=== PATIENT | female | born 1955 | race Caucasian/White ===

== ENCOUNTER 2018-07-31 16:44 | Emergency (ER) | payer MEDICARE, OTHER ==
[~2018-07-31] VITALS: Ht 165.1 cm; Wt 80.0 kg
[2018-07-31] MEDS ORDERED: HYDR12.517 PO (17:04)
[2018-07-31 17:11] LABS: BASOPHILS # (AUTO) 0.05 x10^3/uL (0-0.1); BASOPHILS % (AUTO) 1 % (0-1); EOSINOPHILS # (AUTO) 0.18 x10^3/uL (0-0.4); EOSINOPHILS % (AUTO) 2 % (1-7); LYMPHOCYTES # (AUTO) 3.08 x10^3/uL (1-3.4); LYMPHOCYTES % (AUTO) 30 % (22-44); MD NO; MEAN CORPUSCULAR HEMOGLOBIN 32.7 pg (27.0-34.8); MEAN CORPUSCULAR HGB CONC 34.1 g/dL (32.4-35.8); MEAN CORPUSCULAR VOLUME 96.1 fL (80-100); MEAN PLATELET VOLUME 8.8 fL (7.4-10.4); MONOCYTES # (AUTO) 1.04 x10^3/uL (0.2-0.8); MONOCYTES % (AUTO) 10 % (2-9); NEUTROPHILS % (AUTO) 58 % (42-75); PLATELET COUNT 258 x10^3/uL (130-400); RED BLOOD COUNT 3.69 x10^6/uL (3.82-5.3); RED CELL DISTRIBUTION WIDTH 13.5 % (9.6-15.2)
[2018-07-31 17:21] LABS: ALBUMIN 3.3 g/dL (3.4-5.0); ANION GAP 5 mmol/L (5-15); CALCIUM 7.9 mg/dL (8.5-10.1); CHLORIDE 110 mmol/L (98-107)
[2018-07-31 17:27] LABS: ALANINE AMINOTRANSFERASE 21 U/L (12-78); ALKALINE PHOSPHATASE 90 U/L (45-117); BILIRUBIN,TOTAL 0.2 mg/dL (0.2-1.0); TOTAL PROTEIN 7.1 g/dL (6.4-8.2); TROPONIN I < 0.015 ng/mL (0.000-0.045)
[2018-07-31 21:13] LABS: TROPONIN I < 0.015 ng/mL (0.000-0.045)
[2018-07-31 21:37] VITALS: BP 129/56
== END 2018-07-31 21:40 | disposition home or self-care (01) ==
LOC: ED 18:54
DX: R07.2 Precordial pain (principal); Z72.9 Problem related to lifestyle, unspecified; F17.200 Nicotine dependence, unspecified, uncomplicated
CPT/HCPCS: 36415; 71045; 80053; 83880; 84484; 85025; 93005; 99284; 99406

== ENCOUNTER 2018-08-12 15:35 | Emergency (ER) | payer MEDICARE ==
[~2018-08-12] VITALS: Ht 162.6 cm; Wt 77.9 kg
[~2018-08-12 15:35] MED LIST: HYDR12.517 PO
--- NOTE | 2018-08-12 16:12 | NUR ---
pt up to restroom upon recieving report from [facility]. pt has loose stool in restroom. upon returning pt expresses need to go again. beside commode provided. shortly after pt has third episode.
[2018-08-12] MEDS ORDERED: SODIUM CHLORIDE FLUSH 10ML SYR IVF ONE (16:30)
[2018-08-12] MEDS ORDERED: FAMOTIDINE 20 MG/2 ML IVP ONE (16:30)
[2018-08-12] MEDS ORDERED: SODIUM CHLORIDE 0.9% 1,000ML IVBOLUS ONE (16:30)
[2018-08-12] MEDS ORDERED: ONDANSETRON 2MG/ML, 2ML IVPush ONE (16:30)
[2018-08-12] MEDS ORDERED: ONDANSETRON 2MG/ML, 2ML ONE (16:41)
[2018-08-12] MEDS ORDERED: FAMOTIDINE 20 MG/2 ML ONE (16:41)
[2018-08-12 16:47] LABS: BASOPHILS # (AUTO) 0.03 x10^3/uL (0-0.1); BASOPHILS % (AUTO) 0 % (0-1); EOSINOPHILS # (AUTO) 0.05 x10^3/uL (0-0.4); EOSINOPHILS % (AUTO) 0 % (1-7); LYMPHOCYTES # (AUTO) 0.45 x10^3/uL (1-3.4); LYMPHOCYTES % (AUTO) 4 % (22-44); MD NO; MEAN CORPUSCULAR HEMOGLOBIN 32.3 pg (27.0-34.8); MEAN CORPUSCULAR HGB CONC 33.9 g/dL (32.4-35.8); MEAN CORPUSCULAR VOLUME 95.5 fL (80-100); MEAN PLATELET VOLUME 9.1 fL (7.4-10.4); MONOCYTES # (AUTO) 0.45 x10^3/uL (0.2-0.8); MONOCYTES % (AUTO) 4 % (2-9); NEUTROPHILS # (AUTO) 10.09 x10^3/uL (1.8-6.8); NEUTROPHILS % (AUTO) 91 % (42-75); PLATELET COUNT 321 x10^3/uL (130-400); RED BLOOD COUNT 4.35 x10^6/uL (3.82-5.3); RED CELL DISTRIBUTION WIDTH 13.5 % (9.6-15.2)
[2018-08-12 16:56] LABS: ALANINE AMINOTRANSFERASE 31 U/L (12-78); ALBUMIN 3.8 g/dL (3.4-5.0); ANION GAP 7 mmol/L (5-15); CHLORIDE 109 mmol/L (98-107); CREATININE 0.95 mg/dL (0.55-1.02)
[2018-08-12 16:59] LABS: ALKALINE PHOSPHATASE 86 U/L (45-117); BILIRUBIN,TOTAL 0.4 mg/dL (0.2-1.0); TOTAL PROTEIN 7.9 g/dL (6.4-8.2)
[2018-08-12 17:40] VITALS: BP 116/74
--- NOTE | 2018-08-12 18:08 | NUR ---
pt given water for po challenge. pt stated she vomited again. no emisis present in bag.. made aware.
== END 2018-08-12 18:51 | disposition home or self-care (01) ==
LOC: ED 16:45
DX: R11.2 Nausea with vomiting, unspecified (principal); R19.7 Diarrhea, unspecified; I10 Essential (primary) hypertension
CPT/HCPCS: 36415; 74021; 80053; 83690; 85025; 96361; 96374; 96375; 99284; J2405; J3490; J7030

== ENCOUNTER 2018-08-19 05:50 | Inpatient (IN) | payer MEDICARE ==
[~2018-08-19] VITALS: Ht 165.1 cm; Wt 80.0 kg
[2018-08-19] MEDS ORDERED: SODIUM CHLORIDE 0.9% 1,000ML IVBOLUS ONE (06:00)
[2018-08-19] MEDS ORDERED: FAMOTIDINE 20 MG/2 ML IVP ONE (06:00)
[2018-08-19] MEDS ORDERED: MAALOX/HYOSCYAMINE/LIDOCAINE 45 ML BTL PO ONE (06:00)
[2018-08-19] MEDS ORDERED: SODIUM CHLORIDE FLUSH 10ML SYR IVF ONE (06:00)
[2018-08-19] MEDS ORDERED: PROMETHAZINE 25 MG/ML, 1ML IM ONE (06:00)
[2018-08-19] MEDS ORDERED: MAALOX/HYOSCYAMINE/LIDOCAINE 45 ML BTL ONE (06:13)
[2018-08-19] MEDS ORDERED: PROMETHAZINE 25 MG/ML, 1ML ONE (06:13)
[2018-08-19] MEDS ORDERED: FAMOTIDINE 20 MG/2 ML ONE (06:13)
[2018-08-19 06:19] LABS: MEAN CORPUSCULAR HEMOGLOBIN 32.6 pg (27.0-34.8); MEAN CORPUSCULAR HGB CONC 34.6 g/dL (32.4-35.8); MEAN CORPUSCULAR VOLUME 94.2 fL (80-100); MEAN PLATELET VOLUME 9.3 fL (7.4-10.4); PLATELET COUNT 218 x10^3/uL (130-400); RED CELL DISTRIBUTION WIDTH 13.4 % (9.6-15.2)
[2018-08-19 06:25] LABS: ALANINE AMINOTRANSFERASE 32 U/L (12-78); ALBUMIN 3.3 g/dL (3.4-5.0); ANION GAP 9 mmol/L (5-15); CALCIUM 8.8 mg/dL (8.5-10.1); CHLORIDE 104 mmol/L (98-107); CREATININE 1.07 mg/dL (0.55-1.02)
[2018-08-19 06:27] LABS: ALKALINE PHOSPHATASE 68 U/L (45-117); BILIRUBIN,TOTAL 1.1 mg/dL (0.2-1.0)
[2018-08-19] MEDS ORDERED: POTASSIUM CHLORIDE 20 MEQ TAB.ER.PRT ONE (06:36)
--- NOTE | 2018-08-19 06:39 | NUR ---
PT YASMANY PALACIOS FROM [facility]. PT REPORTS SHE HAS BEEN VOMITING ALL NIGHT. VS STABLE. CALL LIGHT IN PLACE. WILL CONTINUE TO MONITOR.
[2018-08-19 06:43] LABS: MD YES
[2018-08-19 06:45] LABS: BAND#(MANUAL) 1.14 x10^3/uL; BANDS%(MANUAL) 9 % (0-7); LYMPH#(MANUAL) 0.64 x10^3/uL (1-3.4); LYMPHS% (MANUAL) 5 % (22-44); MONOS#(MANUAL) 0.51 x10^3/uL (0.3-2.7); MONOS% (MANUAL) 4 % (2-9); SEG#(MANUAL) 10.41 x10^3/uL (1.8-6.8); SEGS% (MANUAL) 82 % (42-75)
[2018-08-19 06:46] LABS: <PLATELET ESTIMATE> ADEQUATE; <PLT MORPHOLOGY> NORMAL PLT MORPH; <RBC MORPHOLOGY> NORMAL
--- NOTE | 2018-08-19 06:49 | NUR ---
RECEIVED BEDSIDE REPORT FROM TEENA CONNOR.
--- NOTE | 2018-08-19 06:49 | NUR ---
REPORT GIVEN TO TEENA MORAN
[2018-08-19] MEDS ORDERED: POTASSIUM CHLORIDE 20 MEQ TAB.ER.PRT PO ONE (07:00)
--- NOTE | 2018-08-19 07:04 | NUR ---
PT BACK FROM IMAGING.
--- NOTE | 2018-08-19 08:04 | NUR ---
late entry for 0715 PT AMBULATORY WITH CANE TO BATHROOM. PT VOIDED AND UNABLE TO PROVIDE STOOL SAMPLE. EDPA AWARE. NO ACUTE DISTRESS NOTED. NO NEEDS REQUESTED AT THIS TIME.
--- NOTE | 2018-08-19 08:11 | NUR ---
PT RESTING ON GURNEY. NO ACUTE DISTRESS NOTED. PT BEING TAKEN TO IMAGING.
[2018-08-19] MEDS ORDERED: OMNIPAQUE 350 MG/ML, 100ML BOTTLE ONE (08:21)
[2018-08-19] MEDS ORDERED: AZITHROMYCIN 500 MG in SODIUM CHLORIDE 0.9% 250 ML IV ONE (09:00)
[2018-08-19] MEDS ORDERED: CEFTRIAXONE PMX 1GM/50ML 50 ML IV ONE (09:00)
[2018-08-19] MEDS ORDERED: CEFTRIAXONE 1,000 MG in SODIUM CHLORIDE 0.9% 50 ML IVPB ONE (09:00)
[2018-08-19] MEDS ORDERED: CEFTRIAXONE PMX 1GM/50ML 50 ML ONE (09:01)
--- NOTE | 2018-08-19 09:12 | NUR ---
[place]. ABX ADMINISTERED PER EMAR. BC X 2 COMPLETE. NO NEEDS REQUESTED AT THIS TIME. NO ACUTE DISTRESS NOTED.
[2018-08-19] MEDS ORDERED: ACETAMINOPHEN 325 MG TABLET PO ONE (09:30)
[2018-08-19] MEDS ORDERED: ACETAMINOPHEN 325 MG TABLET ONE (09:56)
--- NOTE | 2018-08-19 10:05 | NUR ---
PT RESTING ON GURNEY. EKG COMPLETED. NO NEEDS REQUESTED AT THIS TIME. WILL CONTINUE TO MONITOR.
[2018-08-19] MEDS ORDERED: hydrALAzine 20 MG/ML, 1ML IVPush PRN (10:30)
[2018-08-19] MEDS ORDERED: ONDANSETRON 2MG/ML, 2ML IVPush PRN (10:30)
[2018-08-19] MEDS ORDERED: ENALAPRILAT 1.25 MG/ML, 2ML IVPush PRN (10:30)
[2018-08-19] MEDS ORDERED: DIPHENHYDRAMINE 25 MG CAPSULE PO PRN (10:30)
[2018-08-19] MEDS ORDERED: PROMETHAZINE 25 MG/ML, 1ML IM PRN (10:30)
[2018-08-19] MEDS ORDERED: ASA/APAP/ CAFFEINE TABLET PO PRN (10:30)
[2018-08-19] MEDS ORDERED: METOCLOPRAMIDE 5 MG/ML, 2ML IVPush PRN (10:30)
[2018-08-19] MEDS ORDERED: ONDANSETRON ODT 4 MG PO PRN (10:30)
--- NOTE | 2018-08-19 10:37 | NUR ---
REPORT TO TEENA FELIPE. ALL QUESTIONS ANSWERED.
[2018-08-19] MEDS: SODIUM CHLORIDE 0.9% 1,000 ML IV SCH ×3 (10:44→19:55)
--- NOTE | 2018-08-19 11:17 | NUR ---
PT TRANSFERRED TO FLOOR. PT LEFT WITH ALL PERSONAL BELONGINGS.
[2018-08-19 11:27] VITALS: BP 84/49
[2018-08-19 13:18] VITALS: BP 88/55
[2018-08-19 13:28] LABS: MICROSCOPIC INDICATED
[2018-08-19] MEDS: NICOTINE 7 MG/24 HR PATCH.TD24 TD SCH (13:28)
[2018-08-19] MEDS: ENOXAPARIN 40 MG/0.4 ML SQ SCH (13:28)
[2018-08-19 13:39] LABS: CULTURE INDICATED? YES
[2018-08-19] MEDS ORDERED: POTASSIUM CHLORIDE 40 MEQ in SODIUM CHLORIDE 0.9% 500 ML IV ONE (14:00)
[2018-08-19] MEDS ORDERED: MAGNESIUM SULFATE PMX 2GM/50ML 50 ML IV ONE (14:00)
[2018-08-19 14:23] LABS: RAPID INFLUENZA A Negative (Negative); RAPID INFLUENZA B Negative (Negative)
[2018-08-19 15:37] VITALS: BP 93/56
[2018-08-19 19:39] VITALS: BP 90/56
[2018-08-19] MEDS: FAMOTIDINE 20 MG TABLET PO SCH (19:55)
[2018-08-19] MEDS: ACETAMINOPHEN 325 MG TABLET PO PRN (19:55)
[2018-08-20 00:50] VITALS: BP 96/54
[2018-08-20] MEDS: SODIUM CHLORIDE 0.9% 1,000 ML IV SCH ×3 (03:56→23:37)
[2018-08-20] MEDS: ACETAMINOPHEN 325 MG TABLET PO PRN ×3 (05:57→17:45)
[2018-08-20 06:28] LABS: MEAN CORPUSCULAR HEMOGLOBIN 32.3 pg (27.0-34.8); MEAN CORPUSCULAR HGB CONC 33.9 g/dL (32.4-35.8); MEAN CORPUSCULAR VOLUME 95.4 fL (80-100); MEAN PLATELET VOLUME 9.9 fL (7.4-10.4); PLATELET COUNT 197 x10^3/uL (130-400); RED BLOOD COUNT 3.68 x10^6/uL (3.82-5.3); RED CELL DISTRIBUTION WIDTH 14.1 % (9.6-15.2)
[2018-08-20 06:31] LABS: CHLORIDE 116 mmol/L (98-107)
[2018-08-20 06:45] LABS: ALANINE AMINOTRANSFERASE 24 U/L (12-78); ALBUMIN 2.3 g/dL (3.4-5.0); ALKALINE PHOSPHATASE 55 U/L (45-117); ANION GAP 5 mmol/L (5-15); BILIRUBIN,TOTAL 0.6 mg/dL (0.2-1.0); CREATININE 0.71 mg/dL (0.55-1.02); TOTAL PROTEIN 5.5 g/dL (6.4-8.2)
[2018-08-20 06:57] LABS: BASOPHILS # (AUTO) 0.02 x10^3/uL (0-0.1); BASOPHILS % (AUTO) 0 % (0-1); EOSINOPHILS # (AUTO) 0.07 x10^3/uL (0-0.4); EOSINOPHILS % (AUTO) 0 % (1-7); LYMPHOCYTES # (AUTO) 1.68 x10^3/uL (1-3.4); LYMPHOCYTES % (AUTO) 9 % (22-44); MD SCAN; MONOCYTES # (AUTO) 0.82 x10^3/uL (0.2-0.8); MONOCYTES % (AUTO) 4 % (2-9); NEUTROPHILS # (AUTO) 17.27 x10^3/uL (1.8-6.8); NEUTROPHILS % (AUTO) 87 % (42-75)
[2018-08-20 07:06] VITALS: BP 94/53
[2018-08-20] MEDS: FAMOTIDINE 20 MG TABLET PO SCH ×2 (08:02→19:43)
[2018-08-20] MEDS: CEFTRIAXONE PMX 1GM/50ML 50 ML IV SCH (08:02)
[2018-08-20] MEDS ORDERED: HYDROCHLOROTHIAZIDE 12.5 MG CAPSULE PO SCH (09:00)
[2018-08-20 10:22] LABS: CLOSTRIDIUM DIFFICILE ANTIGEN NEGATIVE; CLOSTRIDIUM DIFFICILE TOXIN NEGATIVE (Negative)
[2018-08-20] MEDS: LACTOBACILLUS CHEW TABLET PO SCH ×3 (10:46→19:43)
[2018-08-20] MEDS ORDERED: AZITHROMYCIN 500 MG in SODIUM CHLORIDE 0.9% 250 ML IV SCH (11:00)
[2018-08-20 11:23] LABS: ANION GAP 8 mmol/L (5-15); CALCIUM 8.3 mg/dL (8.5-10.1); CHLORIDE 112 mmol/L (98-107); CREATININE 0.74 mg/dL (0.55-1.02)
[2018-08-20 12:40] VITALS: BP 105/65
[2018-08-20] MEDS: NICOTINE 7 MG/24 HR PATCH.TD24 TD SCH (13:25)
[2018-08-20] MEDS: ENOXAPARIN 40 MG/0.4 ML SQ SCH (13:25)
[2018-08-20 19:30] VITALS: BP 102/63
[2018-08-21 01:08] VITALS: BP 113/72
[2018-08-21 06:08] LABS: ANION GAP 8 mmol/L (5-15); CALCIUM 8.4 mg/dL (8.5-10.1); CHLORIDE 112 mmol/L (98-107)
[2018-08-21 06:09] LABS: CREATININE 0.69 mg/dL (0.55-1.02)
[2018-08-21 06:24] LABS: MEAN CORPUSCULAR HEMOGLOBIN 31.7 pg (27.0-34.8); MEAN CORPUSCULAR HGB CONC 33.2 g/dL (32.4-35.8); MEAN CORPUSCULAR VOLUME 95.7 fL (80-100); MEAN PLATELET VOLUME 10.6 fL (7.4-10.4); PLATELET COUNT 220 x10^3/uL (130-400); RED CELL DISTRIBUTION WIDTH 13.6 % (9.6-15.2)
[2018-08-21 06:52] LABS: BASOPHILS # (AUTO) 0.04 x10^3/uL (0-0.1); BASOPHILS % (AUTO) 0 % (0-1); EOSINOPHILS # (AUTO) 0.06 x10^3/uL (0-0.4); EOSINOPHILS % (AUTO) 1 % (1-7); LYMPHOCYTES # (AUTO) 2.02 x10^3/uL (1-3.4); LYMPHOCYTES % (AUTO) 18 % (22-44); MD SCAN; MONOCYTES # (AUTO) 0.66 x10^3/uL (0.2-0.8); MONOCYTES % (AUTO) 6 % (2-9); NEUTROPHILS # (AUTO) 8.67 x10^3/uL (1.8-6.8); NEUTROPHILS % (AUTO) 76 % (42-75)
[2018-08-21 06:54] VITALS: BP 122/68
[2018-08-21] MEDS: LACTOBACILLUS CHEW TABLET PO SCH (09:03)
[2018-08-21] MEDS: FAMOTIDINE 20 MG TABLET PO SCH (09:03)
[2018-08-21] MEDS: CEFTRIAXONE PMX 1GM/50ML 50 ML IV SCH (09:53)
[2018-08-21] MEDS ORDERED: SODIUM CHLORIDE 0.9% 1,000 ML IV SCH (10:18)
[2018-08-21] MEDS ORDERED: ACET325T14 PO (11:07)
[2018-08-21] MEDS ORDERED: DOXY100C2 PO (11:07)
[2018-08-21] MEDS ORDERED: AMOX-291 PO (11:07)
[2018-08-21] MEDS ORDERED: NICO-485 TD (11:07)
[2018-08-21] MEDS ORDERED: ACID1TAB7 PO (11:07)
[2018-08-21 12:23] VITALS: BP 137/79
[2018-08-21] MEDS: ACETAMINOPHEN 325 MG TABLET PO PRN (15:09)
== END 2018-08-21 15:49 | disposition home or self-care (01) | DRG 871 ==
LOC: ED 08:43 → EDIP 09:59 → 4EST 11:18 → DCLOUNGE 08-21 15:40
PROVIDERS: ADMIT Hospitalist; ATTEND Hospitalist
DX: A41.9 Sepsis, unspecified organism (principal); J15.9 Unspecified bacterial pneumonia; N17.9 Acute kidney failure, unspecified; A08.4 Viral intestinal infection, unspecified; E83.42 Hypomagnesemia; E86.0 Dehydration; E87.6 Hypokalemia; F17.210 Nicotine dependence, cigarettes, uncomplicated; I10 Essential (primary) hypertension; R09.02 Hypoxemia; Z66 Do not resuscitate; Z59.0 Homelessness; Z82.49 Family history of ischemic heart disease and other diseases of the circulatory system; Z83.3 Family history of diabetes mellitus
CPT/HCPCS: 36415; 71046; 71275; 80048; 80053; 81001; 83605; 83690; 83735; 84100; 84145; 84443; 85025; 87040; 87086; 87324; 87400; 93005; 96361; 96365; 96372; 96375; G0378; J0456; J0696; J1650; J2550; J3480; Q9967; J3475; J3490; J7030; J7040; J7050

== ENCOUNTER 2018-09-10 19:08 | Emergency (ER) | payer MEDICARE ==
[~2018-09-10] VITALS: Ht 165.1 cm; Wt 79.5 kg
[~2018-09-10 19:08] MED LIST changes: +ACET325T14 PO; +ACID1TAB7 PO; +AMOX-291 PO; +DOXY100C2 PO; +NICO-485 TD
--- NOTE | 2018-09-10 19:40 | NUR ---
PT. TO ROOM FROM LOBBY AT THIS TIME.
--- NOTE | 2018-09-10 19:46 | NUR ---
PT. REPORTS GLF OFF A CURB TONIHT. RIGHT FOOT/ANKLE/KNEE PAIN. DENIES HITTING HEAD OR LOC. DENIES NECK PAIN. C/O LOWER BACK PAIN ALSO. per triage note
--- NOTE | 2018-09-10 21:35 | NUR ---
Pt refused crutches, said she would be fine on just her cane
--- NOTE | 2018-09-10 22:03 | NUR ---
given taxi [place] for ride home ( halfway?? [address] ) pt refused to use air stirrup or crutches d/t snow outside pt changes clothes with med tech help for dc home with taxi [facility] stable
[2018-09-10 22:05] VITALS: BP 116/72
== END 2018-09-10 22:23 | disposition home or self-care (01) ==
LOC: ED 19:56
DX: S83.91XA Sprain of unspecified site of right knee, initial encounter (principal); S93.401A Sprain of unspecified ligament of right ankle, initial encounter; S20.212A Contusion of left front wall of thorax, initial encounter; S90.31XA Contusion of right foot, initial encounter; I10 Essential (primary) hypertension; Z72.9 Problem related to lifestyle, unspecified; Z87.01 Personal history of pneumonia (recurrent); W01.0XXA Fall on same level from slipping, tripping and stumbling without subsequent striking against object, initial encounter; Y93.89 Activity, other specified; Y92.89 Other specified places as the place of occurrence of the external cause; Y99.8 Other external cause status
CPT/HCPCS: 99283

== ENCOUNTER 2018-10-10 14:47 | Emergency (ER) | payer MEDICARE ==
[~2018-10-10] VITALS: Ht 162.6 cm; Wt 79.5 kg
[2018-10-10] MEDS ORDERED: MORPHINE SULFATE 4 MG/ML, 1ML IVPush PRN (16:00)
[2018-10-10] MEDS ORDERED: ONDANSETRON 2MG/ML, 2ML IVPush ONE (16:00)
[2018-10-10] MEDS ORDERED: SODIUM CHLORIDE FLUSH 10ML SYR IVF ONE (16:00)
[2018-10-10] MEDS ORDERED: ONDANSETRON ODT 4 MG ONE (16:38)
[2018-10-10 16:39] LABS: BASOPHILS # (AUTO) 0.07 x10^3/uL (0-0.1); BASOPHILS % (AUTO) 1 % (0-1); EOSINOPHILS # (AUTO) 0.11 x10^3/uL (0-0.4); EOSINOPHILS % (AUTO) 2 % (1-7); LYMPHOCYTES # (AUTO) 2.09 x10^3/uL (1-3.4); LYMPHOCYTES % (AUTO) 28 % (22-44); MD NO; MEAN CORPUSCULAR HEMOGLOBIN 31.9 pg (27.0-34.8); MEAN CORPUSCULAR HGB CONC 33.8 g/dL (32.4-35.8); MEAN CORPUSCULAR VOLUME 94.4 fL (80-100); MEAN PLATELET VOLUME 8.7 fL (7.4-10.4); MONOCYTES # (AUTO) 0.72 x10^3/uL (0.2-0.8); MONOCYTES % (AUTO) 10 % (2-9); NEUTROPHILS # (AUTO) 4.48 x10^3/uL (1.8-6.8); NEUTROPHILS % (AUTO) 60 % (42-75); PLATELET COUNT 299 x10^3/uL (130-400); RED BLOOD COUNT 4.16 x10^6/uL (3.82-5.3); RED CELL DISTRIBUTION WIDTH 14.1 % (9.6-15.2)
[2018-10-10] MEDS ORDERED: HYDROmorphone 1 MG/ML, 1ML ONE (16:40)
[2018-10-10 16:50] LABS: ALANINE AMINOTRANSFERASE 23 U/L (12-78); ALBUMIN 3.9 g/dL (3.4-5.0); ANION GAP 5 mmol/L (5-15); CALCIUM 9.1 mg/dL (8.5-10.1); CHLORIDE 109 mmol/L (98-107); CREATININE 0.87 mg/dL (0.55-1.02)
[2018-10-10 16:52] LABS: ALKALINE PHOSPHATASE 86 U/L (45-117); BILIRUBIN,TOTAL 0.6 mg/dL (0.2-1.0); TOTAL PROTEIN 7.4 g/dL (6.4-8.2)
--- NOTE | 2018-10-10 16:52 | NUR ---
PT MEDICATED PER OCT. RIGHTS VERIFIED PRIOR. 3 P'S ADDRESSED. PT AMBULATED USING CANE TO RESTROOM.
[2018-10-10] MEDS ORDERED: HYDROmorphone 1 MG/ML, 1ML IM ONE (17:00)
[2018-10-10] MEDS ORDERED: ONDANSETRON ODT 4 MG PO ONE (17:00)
[2018-10-10 17:13] VITALS: BP 120/81
--- NOTE | 2018-10-10 18:00 | NUR ---
Patient/Caregiver given discharge instructions and they have confirmed that they understand the instructions. Patient ambulatory with steady gait.
== END 2018-10-10 18:02 | disposition home or self-care (01) ==
LOC: ED 17:56
DX: G89.11 Acute pain due to trauma (principal); M54.5 Low back pain; M25.551 Pain in right hip
CPT/HCPCS: 36415; 71045; 72110; 73502; 80053; 85025; 93005; 96372; 99284; J1170; Q0162